=== PATIENT | female | born 1980 | race Caucasian/White ===

== ENCOUNTER → 2018-04-19 | Outpatient (CLI) | payer OTHER ==
--- NOTE | 2018-04-20 09:01 | REPMRS ---
Patient History The patient states she had a clinical breast exam in 2017. Family history of breast cancer at age 70 in maternal grandmother, pancreatic cancer at age 80 in maternal grandfather. Taking hormonal contraceptives for 10 years. Digital Mammo Screening Bilat: April 19, 2018 - Exam #: [id number] Bilateral CC and MLO view(s) were taken. Technologist: Rosie Villegas, Technologist FINDINGS: The breast tissue is heterogeneously dense. This may lower the sensitivity of mammography. There is no evidence of dominant mass, architectural distortion, or clustered microcalcification typical of malignancy. Assessment: BI-RADS/ACR category 1 mammogram. Negative Mammogram. Recommendation Breast MRI of both breasts in 6 months. Routine screening mammogram of both breasts in 1 year (for women over age 40). This patient's Lifetime Breast Cancer RIsk is estimated at 20.5 %. Annual screening Breast MRI scanniing is recommended for patient's whose lifetime risk assessment is over 20%. This mammogram was interpreted with the aid of an FDA-approved computer-aided dectection system. Electronically Signed By: Amos Davey MD 04/20/18 0901
== END ==
LOC: M RAD 16:01
PROVIDERS: ATTEND Student in an Organized Health Care Education/Training Program
DX: Z12.31 Encounter for screening mammogram for malignant neoplasm of breast (principal)

== ENCOUNTER → 2018-10-31 | Outpatient (CLI) | payer OTHER ==
[~2018-10-31] MED LIST: PROHANCE 279.3MG/ML 15ML VIAL (A9576) As Ordered ONE
--- NOTE | 2018-11-01 06:37 | REP ---
MRI BILATERAL BREAST WITH AND WITHOUT CONTRAST: Correlation mammogram 04/19/2018, which was negative for malignancy. Tyrer-Cuzick lifetime risk of breast cancer 20.5%. TECHNIQUE: Multiple sequences obtained in the axial, coronal, and sagittal planes prior to and following the intravenous administration of 15 mL ProHance. Images are evaluated in the [employer] software including dynamic post-IV gadolinium axial T1 fat sat images, subtraction images, color overlay, and CAD images as well as MIP reconstruction images. Breast parenchyma demonstrates an extreme pattern correlating with the very dense parenchyma seen on the prior mammogram. Multiple subcentimeter cysts are scattered throughout both breasts. Largest are in the range of 8 to 9 mm in maximum diameter. No axillary adenopathy is seen. There is mild to moderate background parenchymal enhancement symmetrically bilaterally. No suspicious enhancing mass is seen. No morphological abnormality is seen. IMPRESSION: Extreme pattern of parenchymal tissue with multiple bilateral cysts. No suspicious enhancing mass or morphologic abnormality. BI-RADS category 2. Benign. Recommend annual screening supplemental MRI of the breasts for patients with Tyrer-Cuzick lifetime risk of breast cancer of 20% or greater. Electronically Signed by Facundo Brewer MD 11/02/2018 09:59 A
== END ==
LOC: M RAD 08:45
PROVIDERS: ATTEND Student in an Organized Health Care Education/Training Program
DX: N60.11 Diffuse cystic mastopathy of right breast (principal); N60.12 Diffuse cystic mastopathy of left breast
CPT/HCPCS: A9576; C8908